=== PATIENT | male | born 1935 | race African-American/Black ===

== ENCOUNTER 2016-12-31 18:32 | Inpatient (IN) | payer OTHER ==
--- NOTE | ~2016-12-31 | IDS ---
Interim Discharge Summary [facility] [address] [place]. [address] NAME: EDDIE ZEPEDA : 37 STATUS : ADM IN PAT#: [id number] AGE: 81 ADM/REG DATE : 12/31/16 MR#: [id number] REPORT SERV DATE: 01/06/17 DICTATED BY: JOSE LOCO DATE: 01/06/17 REPORT STATUS : Draft TRANSCRIBED BY: MODL DATE: 01/06/17 ADMISSION DATE: 12/31/2016 DISCHARGE DATE: DATE OF INTERIM DISCHARGE: 01/06/2017. PROCEDURES DONE: 1. 12/31/2016, chest x-ray: Left infrahilar atelectasis. Persistent cardiomegaly with pulmonary venous congestion. 2. 12/31/2016, CTA of chest shows right lower lobe segmental size pulmonary artery embolus. This represents small pulmonary embolus burden, although represents a positive exam for acute pulmonary embolus. Fusiform aneurysmal change, ascending thoracic aorta, measuring up to 4.7 cm diameter in the mid ascending thoracic aorta. Enlarged main pulmonary artery 3.6 cm diameter consistent with evidence of pulmonary hypertension. Subsegmental atelectasis, both posterior lung bases. Small fat containing left posterior diaphragmatic hernia effect. Cardiomegaly. Dense coronary artery calcifications. Bulky right thyroid goiter displacing trachea to the left midline. 3. 01/01/2017, 2D echo: Normal off normal LV size with moderate decrease in systolic function. EF 35%. Mild global hypokinesis with inferior and inferolateral severe hypokinesis. Normal RV size and decreased systolic function. Aortic valve sclerosis without stenosis with mild regurgitation. No evidence of significant pulmonary hypertension with RVSP at 33 mmHg. CONSULT: Cardiology with Dr. Morgan. REASON FOR ADMISSION: Chest pain. HISTORY OF HOSPITAL STAY: A 81-year-old, black male, past medical history of hypertension, presenting with chest pain. The patient was initially admitted in intensive care secondary to the patient having chest pain secondary to PE. The patient was started on heparin and subsequently was moved to the floor the following day. In addition, the patient was also noted to be in hypertensive urgency, which the jig worker started blood pressure medications, which brought the patient's blood pressure to normotensive. After the transfer to the floor, the patient's blood pressure has been elevated. Attempts were made to get the blood pressure down to normotensive due to the new discovery of ascending aortic aneurysm at 4.7 cm. The patient responded well with blood pressure medications. However, the patient's clinical condition resulted in being weak and dizzy with an episode of hypotension and bradycardia. Upon further questioning, the patient has been taking his lisinopril and has not been monitoring his blood pressure at home. At this point, questionable if the patient has permissive elevated blood pressure that has been undiagnosed, which resulted in hypertensive urgency. At this time, the patient is slowly being weaned back to his elevated blood pressure range prior to admission. Questionable if the patient's blood pressure is normally around systolic blood pressure of 150. In addition, a 2D echo was done at the time of admission, which showed an EF of 35% with inferior hypokinesis. Cardiology was consulted. Cardiology felt that the acute issue at this time is the pulmonary embolus. Interim Discharge Summary [place] [id number] [facility] [place]. [address] NAME: EDDIE ZEPEDA : 37 STATUS : ADM IN [facility]#: [id number] AGE: 81 ADM/REG DATE : 12/31/16 MR#: [id number] REPORT SERV DATE: 01/06/17 DICTATED BY: JOSE LOCO DATE: 01/06/17 REPORT STATUS : Draft TRANSCRIBED BY: JENNIE DATE: 01/06/17 Although the patient will need a heart catheterization in the future, treatment of the pulmonary embolus for three to six months is warranted before a cardiac cath. In the meantime, the patient's creatinine also is being monitored. Since the patient was normotensive for one to two days, questionable if the kidney were perfuse. We will continue to monitor blood pressure and renal function at this time. DIAGNOSES ON DISCHARGE: 1. Chest pain secondary to hypertensive versus pulmonary embolism. Currently, the patient's chest pain is resolved. 2. Pulmonary embolism. Initially, patient was on heparin and subsequently been converted to Xarelto. The patient is able to afford the medication based on his insurance. There was a question about affordability. 3. Hypertensive urgency. On further questioning, the patient probably is having permissive elevated blood pressure prior to being admitted. Attempts were made to bring the patient's blood pressure in the normotensive range. However, the patient was clinically feeling weaker. Therefore, the patient's blood pressure medications have slowly been discontinued to elevate the patient's blood pressure for perfusion for his kidneys. Family is aware that the patient's lack of blood pressure control as an outpatient allow permissive hypertension to persist presents for the patient. 4. Ascending aortic aneurysm at 4.7 cm. Although blood pressure control would be required for this patient, we will slowly bring down the blood pressure over time. This will require careful monitoring as an outpatient. 5. Coronary artery disease with inferior hypokinesis. Cardiology has been consulted for further evaluation of the patient's coronary artery disease. At this time, we will wait until pulmonary embolism has resolved before heart catheterization can be done. 6. Right thyroid goiter. The patient has stated that he had opportunities to rectify his thyroid with radioactive iodine. Unfortunately, the patient refused due to fear of radiation. Family has been convincing the patient to undergo radioactive iodine ablation for his thyroid goiter. The patient states he is willing to comply once he completes the Xarelto as well as the heart catheterization. FBJ/MODL Jose Loco MD / [id number] CC: MD Eddie Renteria M.D.
--- NOTE | ~2016-12-31 | TEE ---
Transesophageal Echocardiogram [facility] [address] [place]. [address] NAME: EDDIE ZEPEDA : 37 STATUS : ADM IN PAT#: [id number] AGE: 81 ADM/REG DATE : 12/31/16 MR#: [id number] REPORT SERV DATE: 01/08/17 DICTATED BY: THEO DOWNS DATE: 01/08/17 REPORT STATUS : Draft TRANSCRIBED BY: MODL DATE: 01/08/17 FARA AND CARDIOVERSION REPORT INDICATION: This is a 81-year-old male with an atypical atrial flutter versus atrial tachycardia in the setting of acute pulmonary embolism. He is on therapeutic anticoagulation with Xarelto. He has been otherwise hemodynamically stable for several days. Informed consent was obtained, signed, and on the chart prior to proceeding. A time-out was performed. Sedation was per Anesthesia, and esophageal intubation was without difficulty. TECH: MT. The overall quality of the study was adequate. FINDINGS: CHAMBERS: 1. The left atrium appeared mildly enlarged. The left atrial appendage was examined with multiple angulation and there was no thrombus identified. Left atrial appendage color Doppler findings were normal and velocity exceeded 40 cm/second. 2. The left ventricle was grossly normal in size with a visually estimated LVEF of 40%. There was mild-moderate global hypocontractility. 3. The right atrium was moderately dilated. There was no mass thrombus seen. Superior and inferior vena cava appeared normal. 4. The right ventricle appeared moderately enlarged with moderate free wall hypocontractility. VALVES: 1. The aortic valve morphology was trileaflet with adequate mobility. The aortic root was moderately dilated, 4.5 cm. Aortic regurgitation was not assessed. 2. The mitral valve morphology was normal with fully mobile leaflets. Mitral regurgitation was not assessed. 3. The pulmonic valve was grossly normal with adequate mobility. Pulmonic regurgitation was not assessed. 4. The tricuspid valve morphology was normal with fully mobile leaflets. Tricuspid regurgitation was not assessed. OTHER: The interatrial septum was examined with multiple angulations, and there was a definite small patent foramen ovale with left-right interatrial shunt seen by color Doppler. There was no pericardial effusion. The descending thoracic aorta was poorly visualized. The aortic arch was normal in caliber with mild atherosclerotic changes. CARDIOVERSION: A single 200 joule biphasic energy shock was delivered with the pads in the anterior-posterior position with successful conversion from atrial tachycardia versus atrial flutter to sinus rhythm at 70 beats per minute. Transesophageal Echocardiogram [address] [address] NAME: EDDIE ZEPEDA : 37 STATUS : ADM IN PAT#: [id number] AGE: 81 ADM/REG DATE : 12/31/16 MR#: [id number] REPORT SERV DATE: 01/08/17 DICTATED BY: THEO DOWNS. DATE: 01/08/17 REPORT STATUS : Draft TRANSCRIBED BY: JENNIE DATE: 01/08/17 COMPLICATIONS: None apparent. CONCLUSION: 1. NO LEFT ATRIAL OR LEFT ATRIAL APPENDAGE THROMBUS. 2. SUCCESSFUL CARDIOVERSION TO SINUS RHYTHM. 3. MODERATELY DILATED RIGHT-SIDED CHAMBERS. 4. MODERATE RV HYPOCONTRACTILITY. 5. NORMAL LV SIZE WITH MILD-MODERATE SYSTOLIC DYSFUNCTION, EF OF 40%. 6. MODERATELY DILATED AORTIC ROOT. 7. SMALL PATENT FORAMEN OVALE, DESCRIBED ABOVE. AEA/JENNIE Theo Downs M.D. / [id number] CC: MD Eddie Renteria M.D.
--- NOTE | ~2016-12-31 | CN ---
Consultation Report [place] [address] [facility] [place]. [address] NAME: EDDIE ZEPEDA : 37 STATUS : ADM IN PAT#: [id number] AGE: 81 ADM/REG DATE : 12/31/16 MR#: [id number] REPORT SERV DATE: 01/05/17 DICTATED BY: EDDIE AVALOS DATE: 01/05/17 REPORT STATUS : Draft TRANSCRIBED BY: MODL DATE: 01/05/17 CARDIOVASCULAR CONSULTATION DATE OF CONSULTATION: This cardiovascular consultation requested by Dr. Jose Shine. INDICATION: New diagnosis of cardiomyopathy with coronary artery disease. HISTORY OF PRESENT ILLNESS: Mr. Zepeda is a 81-year-old man with no prior history of coronary artery disease, DE, or congestive heart failure. He is admitted with chest pain and is discovered to have an acute pulmonary embolus. He has started Xarelto anticoagulation. He had several studies, which noted significant incidental findings. His chest CT angiogram also demonstrated coronary atherosclerosis. His echocardiogram demonstrated an ejection fraction of 35% with inferior wall hypokinesis. He was also discovered to have an abdominal aortic aneurysm measuring approximately 4.7 cm. Aside from the pain associated with his pulmonary embolus, the patient has had no other cardiovascular symptoms. He did not have symptoms of chest pain or dyspnea leading up to the acute event. He is feeling better now with anticoagulation treatment for his pulmonary embolus. Troponins checked during this admission were 0.07 and 0.05. PAST MEDICAL HISTORY: 1. Hypertension. 2. Acute pulmonary embolus. 3. Hypothyroidism. 4. Recent abdominal aortic aneurysm. 5. Recent coronary artery disease. 6. Recent left ventricular systolic dysfunction. SOCIAL HISTORY: He does not smoke or drink alcohol. FAMILY HISTORY: There is no family history of early coronary artery disease. REVIEW OF SYSTEMS: A complete review of systems was obtained, which is negative in detail except as mentioned above in the HPI. ALLERGIES: INCLUDE LATEX. MEDICATIONS: Include allopurinol, eye drops, vitamin D, Prinivil 20 mg daily, fish oil, Pravachol 40 mg a day. PHYSICAL EXAMINATION: VITAL SIGNS: Blood pressure 102/66, heart rate of 82, respiratory rate of 14. GENERAL: Comfortable in no acute distress. Consultation Report [place] [address] [place]. [address] NAME: EDDIE ZEPEDA : 37 STATUS : ADM IN PAT#: [id number] AGE: 81 ADM/REG DATE : 12/31/16 MR#: [id number] REPORT SERV DATE: 01/05/17 DICTATED BY: EDDIE AVALOS DATE: 01/05/17 REPORT STATUS : Draft TRANSCRIBED BY: JENNIE DATE: 01/05/17 HEENT: Anicteric. No xanthelasma. Lips without cyanosis. NECK: No JVD. Carotids 2+ and symmetric. No carotid bruits. LUNGS: CTA bilaterally. No wheezes or rhonchi. No accessory muscle use. COR: RRR. Normally placed PMI. Normal S1 and S2. No murmurs, rubs or gallops. ABD: Soft, nontender, nondistended. Normal bowel sounds. No abdominal bruits. EXT: No clubbing, cyanosis or edema 2+ and symmetric distal pulses. SKIN: Warm. Dry. No venous stasis changes. MS: No kyphosis. NEURO/PSYCH: Oriented x3. No anxiety or depression. LABORATORY STUDIES: Potassium of 4.5, creatinine of 1.1, hematocrit of 43. Troponin 0.07, 0.05, and 0.02. I reviewed his echocardiogram report as above. EKG: A 12-lead EKG shows sinus rhythm, 85 beats per minute. Left ventricular hypertrophy with strain pattern as noted. Poor R-wave progression noted. IMPRESSION: This is a 81-year-old man, admitted with symptoms consistent with acute pulmonary embolus. He has incidentally discovered to have both coronary atherosclerosis, moderate left ventricular systolic dysfunction, and inferior wall hypokinesis most consistent with prior inferior wall myocardial infarction. He is also discovered to have an abdominal aortic aneurysm measuring 4.7 cm. I think the acute and most important issue is treatment of his pulmonary embolus. I think he will eventually need a cardiac catheterization, but it is probably best to treat his pulmonary embolus with anticoagulants for three to six months first. He will need ultrasound followup of his abdominal aneurysm. I have recommended changing his Pravachol to Lipitor 80 and considering Coreg and lisinopril as primary treatment strategies for his hypertension. NARINDER/JENNIE Eddie Avalos M.D. / [id number] CC: MD Eddie Renteria M.D.
--- NOTE | ~2016-12-31 | DS ---
Discharge Summary [facility] [address] [facility] [place]. [address] NAME: EDDIE ZEPEDA : 37 STATUS : DIS IN PAT#: [id number] AGE: 81 ADM/REG DATE : 12/31/16 MR#: [id number] REPORT SERV DATE: 01/10/17 DICTATED BY: DOUG GARCIA DATE: 01/09/17 REPORT STATUS : Draft TRANSCRIBED BY: MODL DATE: 01/09/17 ADMISSION DATE: 12/31/2016 DISCHARGE DATE: 01/09/2017 DISCHARGE DIAGNOSES: 1. Acute pulmonary embolism on the right upper lobe. Hypertensive urgency, currently resolved. 2. Abdominal aortic aneurysm, measuring about 4.7 cm, unclear whether it is chronic or not, outpatient followup recommended. 3. Coronary artery disease. 4. Atrial fibrillation, status post DC cardioversion, currently in sinus rhythm. 5. Coronary artery disease by CT scan. 6. Right thyroid goiter. 7. Debility. 8. Systolic congestive heart failure with an ejection fraction of 35%, currently compensated. 9. Hypothyroidism. CONSULTANTS DURING THIS HOSPITALIZATION: Eddie Morgan M.D. of Cardiology; Calixto Galeana M.D. of Electrophysiology; and Theo Downs M.D. of Cardiology as well. BRIEF HISTORY OF PRESENT ILLNESS: The patient is a 81-year-old male who presented with chest pain, shortness of breath, and found to have pulmonary embolism, so he was admitted. For a detailed history and physical exam, please see H and P dictated by Dr. Verna Silva on 12/31/2016. HOSPITAL COURSE: After being admitted to the hospital, this patient was monitored in the intensive care unit initially and then transitioned to the floor on 01/02/2017. This patient was followed by Dr. Key Shine. Please refer to interim summary dictated by Dr. Shine on 01/06/2017. I took over this patient's care on 01/08/2017. This patient had already underwent FARA and DC cardioversion. He had remained in sinus rhythm. He did do well. His hemoglobin and hematocrit have been stable. Xarelto has been initiated. These have been approved through his insurance company as well and he ambulated with physical therapy using a rolling walker, this will be needed as home equipment which will be ordered through Case Management. He is doing well enough that he could be discharged in the home setting, all other parameters remained stable. We have written all prescriptions and he feels that he can go home. DISCHARGE DISPOSITION: Home. DISCHARGE ACTIVITY: As tolerated. DISCHARGE DIET: Low-sodium diet. DISCHARGE MEDICATIONS: Allopurinol 100 mg once daily, pravastatin 40 mg once at bedtime, Alphagan eye drops, vitamin D3 1000 units twice daily, Cosopt eye drops, Coreg 6.25 mg twice Discharge Summary [address] [address] NAME: EDDIE ZEPEDA : 37 STATUS : DIS IN PAT#: [id number] AGE: 81 ADM/REG DATE : 12/31/16 MR#: [id number] REPORT SERV DATE: 01/10/17 DICTATED BY: DOUG GARCIA DATE: 01/09/17 REPORT STATUS : Draft TRANSCRIBED BY: JENNIE DATE: 01/09/17 daily, Xalatan eye drops, [place]-3 fish oil, Xarelto 15 mg twice daily to finish a 21-day loading dose and then 20 mg once daily, and lisinopril 5 mg once daily. DISCHARGE FOLLOWUP: With Dr. Eddie Henry in one to two weeks. With Cardiology as scheduled by Cardiology. More than 30 minutes spent planning this patient's discharge, reconciling medications, writing prescriptions, discussing hospital care, followup with the patient and the family at the bedside as well as family over the phone and documenting this discharge. NAILA/JENNIE Doug Garcia M.D. / [id number] CC: Lakesha Callahan M.D. Froilan B. Joves, MD
--- NOTE | ~2016-12-31 | HP ---
History And Physical [place] [address] [place]. [address] NAME: EDDIE ZEPEDA : 37 STATUS : ADM IN [facility]#: [id number] AGE: 81 ADM/REG DATE : 12/31/16 MR#: [id number] REPORT SERV DATE: 01/01/17 DICTATED BY: VERNA SILVA DATE: 01/01/17 REPORT STATUS : Draft TRANSCRIBED BY: MODL DATE: 01/01/17 DATE OF ADMISSION: 12/31/2016 REASON FOR ADMISSION: Pulmonary embolism and hypertension. CHIEF COMPLAINT: Chest pain. HISTORY OF PRESENT ILLNESS: Mr. Zepeda is a 81-year-old gentleman with a past medical history noted below who stated that he went to his primary care physician today for underlying chest pain. He was told to come to the emergency room for his chest pain. The patient states that he has had chest pain for quite some time on and off, however, this one felt a little bit different, this was more of a sharp pain where as his other pains are more of an aching pain. In the emergency room, he was for the most part stable, but then became quite unstable according to the ER staff and was found to be very hypertensive, chest pains became worse, the patient developed diaphoresis, and a CT scan with a PE protocol was conducted in which the patient has a right upper lobe acute pulmonary embolus. He was also very hypertensive, blood pressure has now improved and has had been started on a heparin drip. PAST MEDICAL HISTORY: The patient at this moment in time cannot remember his past medical history or his home medications. The patient states he has a list of home medications. MEDICATIONS: As noted above. ALLERGIES: NO KNOWN DRUG ALLERGIES. FAMILY HISTORY: Mother had lung cancer. Father had coronary artery disease and at the age of 74. SOCIAL HISTORY: The patient is currently . He has a history of smoking and a history of drinking. REVIEW OF SYSTEMS: Other than what was discussed above, no other pertinent review of systems. PHYSICAL EXAMINATION: VITAL SIGNS: The patient is currently afebrile, heart rate around 116, oxygen saturation 96% on 3 liters nasal cannula, respiratory rate 16, and blood pressure currently 137/81. GENERAL: The patient is currently alert and oriented x3, no acute distress, currently in the intensive care unit. HEENT: No JVD. Neck is supple. CARDIAC: Tachycardia noted, slight systolic ejection murmur noted. PULMONARY: Lungs are clear to auscultation bilaterally. No wheezing. ABDOMEN: Soft, nontender, and nondistended. EXTREMITIES: No cyanosis. Pulses noted bilaterally. No lower extremity edema. NEUROLOGIC: No focal neurological deficits. History And Physical [address] [place]. [address] NAME: EDDIE ZEPEDA : 37 STATUS : ADM IN [facility]#: [id number] AGE: 81 ADM/REG DATE : 12/31/16 MR#: [id number] REPORT SERV DATE: 01/01/17 DICTATED BY: VERNA SILVA DATE: 01/01/17 REPORT STATUS : Draft TRANSCRIBED BY: JENNIE DATE: 01/01/17 LABORATORY EXAMINATION: Normal CBC. INR 1.4. Normal kidney function. BNP [address] pulmonary angiogram shows an acute PE on the right upper lobe, goiter, AAA, and coronary artery disease noted. ASSESSMENT AND PLAN: Mr. Zepeda is a 81-year-old gentleman with a past medical history noted above who presents to the intensive care unit with hypertensive urgency, acute pulmonary embolism. 1. Hypertensive urgency: This patient was quite hypertensive and diaphoretic, necessitated the start of nicardipine; however, currently, he is off nicardipine and blood pressure is stable in the 130s. We will continue to follow and hopefully get his home medication list to probably start his home antihypertensive medications. 2. Acute pulmonary embolism: As noted above, this seemed to be unprovoked. The patient has been started on a heparin drip. 3. Abdominal aortic aneurysm at 4.7, unclear whether this is chronic. At this moment in time, this needs an outpatient followup. 4. Coronary artery disease by CT scan criteria, again unclear if this is chronic, we will await home medication list. 5. Right thyroid goiter: The patient shall have this followed up in the outpatient setting as this is quite large and currently moving the trachea to the left. 6. Diet: Advance diet as tolerated. 7. Prophylaxis: The patient is on a heparin drip. 8. Code status: The patient is currently full code. HFQ/MODL Verna Silva MD / [id number] CC: MD Eddie Renteria M.D.
--- NOTE | ~2016-12-31 | CN ---
Consultation Report [facility] [address] [place]. [address] NAME: EDDIE ZEPEDA : 39 STATUS : ADM IN [facility]#: [id number] AGE: 81 ADM/REG DATE : 12/31/16 MR#: [id number] REPORT SERV DATE: 01/08/17 DICTATED BY: SALAZAR POSADA DATE: 01/07/17 REPORT STATUS : Draft TRANSCRIBED BY: MODL DATE: 01/07/17 ELECTROPHYSIOLOGY CONSULTATION DATE OF CONSULTATION: 01/07/2017 REASON FOR CONSULTATION: Atrial flutter and bradycardia. HISTORY OF PRESENT ILLNESS: Mr. Zepeda is a pleasant 81-year-old gentleman, who was admitted with chest discomfort, found to have evidence for an acute pulmonary embolus. He was started on Xarelto. As part of his cardiac workup, he underwent an echocardiogram demonstrating an ejection fraction of 35%. An EKG has demonstrated an atypical atrial flutter with some small upright atrial flutter waves in lead 3, more isoelectric in leads 2 and aVF. Attempts at rate control have resulted in having high-grade AV block and episodes of bradycardia. He denies any symptoms related to either his atrial flutter or any problems with bradycardia. Denying any presyncope, syncope, or profound fatigue. PAST MEDICAL HISTORY: Notable for: 1. Hypertension. 2. Diagnosis of an acute pulmonary embolus on this admission. 3. Cardiomyopathy of uncertain etiology. 4. Hypothyroidism. 5. Abdominal aortic aneurysm. 6. Atypical atrial flutter. 7. Bradycardia as noted above. CURRENT MEDICATIONS: Include Xarelto 15 mg p.o. b.i.d., which he is receiving for his pulmonary embolus. Use of Coreg and Prinivil for his congestive heart failure as well as rate control with his atypical atrial flutter. FAMILY HISTORY: Noncontributory. Negative for premature coronary artery disease. SOCIAL HISTORY: Negative for tobacco or alcohol. REVIEW OF SYSTEMS: As noted above. All other systems reviewed and negative. PHYSICAL EXAMINATION: VITAL SIGNS: O2 saturation 95%, blood pressure 120/70, afebrile, pulse 110, and respirations 20. GENERAL: Well developed, well nourished. HEENT: No icterus. Good dentition. NECK: Supple. No masses or thyromegaly LUNGS: Breathing comfortably. No rales or wheezes. COR: Normal S1, S2. No S3 or S4. No murmurs, clicks, rubs. No JVD ABD: Soft, nondistended, nontender, no hepatosplenomegaly. Consultation Report [place] [id number] [facility] [id number] NAME: EDDIE ZEPEDA : 39 STATUS : ADM IN PAT#: [id number] AGE: 81 ADM/REG DATE : 12/31/16 MR#: [id number] REPORT SERV DATE: 01/08/17 DICTATED BY: SALAZAR POSADA DATE: 01/07/17 REPORT STATUS : Draft TRANSCRIBED BY: JENNIE DATE: 01/07/17 EXT: No clubbing, cyanosis or edema. Peripheral pulses 2+/= bilaterally. SKIN: Warm and dry. No visible lesions. MS: Chest wall without deformity, no obvious clavicular fractures. NEURO/PSYCH: Oriented X3. No anxiety or depression. IMAGING: EKG shows evidence for an atypical atrial flutter, upright in lead 3, isoelectric in leads 2 and aVF. Heart rate 110 beats per minute. QRS and QT intervals within normal limits. No evidence for ischemia or infarction. LABORATORY VALUES: Potassium 5.6, sodium 136, creatinine 1.3. Troponin of 0.2. CBC: WBC of 8.6, hematocrit of 43, and platelet count 366. IMPRESSION: Pleasant gentleman, admitted with chest discomfort thought to be secondary to pulmonary embolus. He has been found to have a decreased LV systolic function, ejection fraction of 35%. He is being treated with carvedilol and an DAMARIS inhibitor. He was discovered to have what appears to be an atypical atrial flutter. I cannot exclude that this could be a clockwise tricuspid valve inferior vena caval isthmus atrial flutter, but certainly has a possibility of being a left-sided atrial flutter. He is modestly tachycardic, but has also demonstrated some high-grade AV block and bradycardia in his atrial flutter making it difficult to control his rate with high dose AV vinita blockade. I would recommend that he undergo cardioversion. At this point, I would do this without an antiarrhythmic agent. If he has recurrence at some point, when he can discontinue anticoagulation that is to say when he has been appropriately treated for his pulmonary embolus, we could consider potential EP study and radiofrequency ablation if felt to be necessary. Again, at this point, I would just recommend a transesophageal echocardiogram and a cardioversion. ELKE/MODL Salazar Posada M.D. / [id number] CC: MD Eddie Renteria M.D.
[~2016-12-31 18:32] MED LIST: COMBIGAN0.2 MG/0.5 OP; COSOPT OPH; FISH OIL1200 MG PO; HYDROCHLOROT25 MG PO; NORV5 PO; PRAVACHOL40 MG PO; XALAT OPH; ZESTRIL10 MG PO; ZOCOR20 PO
[2016-12-31 18:53] LABS: INTERNATIONAL NORMAL RATI 1.4 UNITS (-); PARTIAL THROMBO TIME 43.9 SEC (22.5-37.2); PROTIME (NOT ORD) 17.3 SEC (12.0-14.5)
[2016-12-31 18:58] LABS: BASOPHILS 0.4 %; BASOPHILS ABSOLUTE 0.04 10/3/uL (0.0-0.16); EOSINOPHILS 2.1 %; EOSINOPHILS ABSOLUTE 0.21 10/3/uL (0.0-0.53); ER CBC TAT 0 Hrs 19 Mins; HEMATOCRIT 49.4 % (40.0-51.0); HEMOGLOBIN 15.2 g/dL (13.6-17.8); IMMATURE GRANULOCYTES 0.4 %; IMMATURE GRANULOCYTES ABSOLUTE 0.04 10/3/uL (0.0-0.11); LYMPHOCYTES 11.9 %; LYMPHOCYTES ABSOLUTE 1.21 10/3/uL (0.67-4.30); MEAN CORPUS HGB CONC 30.8 g/dL (32.0-36.0); MEAN CORPUSCULAR HEMOGLOB 22.6 pg (26.0-34.0); MEAN CORPUSCULAR VOLUME 73.5 fL (80-100); MONOCYTES 6.5 %; MONOCYTES ABSOLUTE 0.66 10/3/uL (0.21-1.20); NEUTROPHILS 78.7 %; NEUTROPHILS ABSOLUTE 7.98 10/3/uL (2.02-8.40); NUCLEATED RED BLOOD CELLS 0.5 /100WBC (0-0); PLATELET COUNT 444 10/3/uL (150-400); WHITE BLOOD CELLS 10.1 10/3/uL (4.5-10.5)
[2016-12-31 18:59] LABS: MANUAL DIFF NO %; RED CELL COUNT 6.72 10/6/uL (4.7-6.1)
[2016-12-31 19:05] LABS: BUN (BLOOD UREA NITROGEN) 13 MG/DL (6-23); CALCIUM, SERUM 8.9 MG/DL (8.5-10.4); CHLORIDE, SERUM 105 MMOL/L (96-112); CO2 (CARBON DIOXIDE) 25 MMOL/L (24-34); CREATININE 0.98 MG/DL (0.70-1.30); GFR AFRICAN AMERICAN 85 ML/MIN (>=60); GFR NON AFRICAN AMERICAN 73 ML/MIN (>=60); POTASSIUM, SERUM 4.2 MMOL/L (3.5-5.3); SODIUM, SERUM 140 MMOL/L (135-148)
[2016-12-31 19:08] LABS: GLUCOSE, SERUM 89 MG/DL (60-99)
[2016-12-31 19:09] LABS: CHEST PAIN PROFILE TAT 0 Hrs 30 Mins; TROPONIN I 0.07 NG/ML (<0.05)
[2016-12-31 19:26] LABS: ANISOCYTOSIS 1+ (5-10/OIF) (0-5/OIF)
[2016-12-31 19:28] LABS: GIANT PLATELET FEW
[2016-12-31] MEDS ORDERED: VITAMIN D31000 UNIT PO (21:27)
[2016-12-31] MEDS ORDERED: FISH-EPA1000 MG PO (21:27)
[2016-12-31] MEDS ORDERED: COSOPT OPH (21:28)
[2016-12-31] MEDS ORDERED: PRAVACHOL40 MG PO (21:28)
[2016-12-31] MEDS ORDERED: PRIN5 PO (21:28)
[2016-12-31] MEDS ORDERED: Z100 PO (21:28)
[2016-12-31] MEDS ORDERED: XALAT OPH (21:29)
[2016-12-31] MEDS ORDERED: ALPHAGAN P0.1 % OPH (21:29)
[2016-12-31 22:46] LABS: BE (BASE EXCESS) -2.5 MEQ/L (0 +/- 2.5); CARBOXYHEMOGLOBIN 1.5 % (0-3); DEVICE NC; HCO3 (ACTUAL BICARBONATE) 23.9 MEQ/L (23-27); HEMOBLOGIN CONTENT 17.8 G/DL (14-18); INSTRUMENT SERIAL # 8087; METHEMOGLOBIN 0.6 % (0-3); PCO2 (CO2 TENSION) 47 MMHG (35-45); PO2 (O2 TENSION) 46 MMHG (79-93); SAMPLE Arterial; pH 7.32 (7.37-7.43)
[2017-01-01 04:11] LABS: BASOPHILS 0.2 %; BASOPHILS ABSOLUTE 0.03 10/3/uL (0.0-0.16); EOSINOPHILS 1.1 %; EOSINOPHILS ABSOLUTE 0.13 10/3/uL (0.0-0.53); HEMATOCRIT 48.3 % (40.0-51.0); HEMOGLOBIN 15.4 g/dL (13.6-17.8); IMMATURE GRANULOCYTES 0.7 %; IMMATURE GRANULOCYTES ABSOLUTE 0.08 10/3/uL (0.0-0.11); LYMPHOCYTES 8.5 %; LYMPHOCYTES ABSOLUTE 1.04 10/3/uL (0.67-4.30); MANUAL DIFF NO %; MEAN CORPUS HGB CONC 31.9 g/dL (32.0-36.0); MEAN CORPUSCULAR HEMOGLOB 23.1 pg (26.0-34.0); MEAN CORPUSCULAR VOLUME 72.5 fL (80-100); MONOCYTES 4.4 %; MONOCYTES ABSOLUTE 0.53 10/3/uL (0.21-1.20); NEUTROPHILS 85.1 %; NEUTROPHILS ABSOLUTE 10.36 10/3/uL (2.02-8.40); PLATELET COUNT 385 10/3/uL (150-400); RBC DISTRIBUTION WIDTH 18.7 % (12.0-16.0); RED CELL COUNT 6.66 10/6/uL (4.7-6.1); WHITE BLOOD CELLS 12.2 10/3/uL (4.5-10.5)
[2017-01-01 04:13] LABS: PARTIAL THROMBO TIME 109.3 SEC (22.5-37.2)
[2017-01-01 04:17] LABS: BUN (BLOOD UREA NITROGEN) 14 MG/DL (6-23); CALCIUM, SERUM 9.1 MG/DL (8.5-10.4); CHLORIDE, SERUM 105 MMOL/L (96-112); CO2 (CARBON DIOXIDE) 23 MMOL/L (24-34); CREATININE 0.81 MG/DL (0.70-1.30); GFR AFRICAN AMERICAN 98 ML/MIN (>=60); GFR NON AFRICAN AMERICAN 85 ML/MIN (>=60); POTASSIUM, SERUM 4.1 MMOL/L (3.5-5.3); SODIUM, SERUM 139 MMOL/L (135-148)
[2017-01-01 04:19] LABS: GLUCOSE, SERUM 123 MG/DL (60-99)
[2017-01-01 04:31] LABS: ANISOCYTOSIS 1+ (5-10/OIF) (0-5/OIF); HYPOCHROMIA 1+ (3-10/OIF) (0-2/OIF); PLATELET ESTIMATE ADQ (ADEQUATE)
[2017-01-02 04:23] LABS: BASOPHILS 0.3 %; BASOPHILS ABSOLUTE 0.03 10/3/uL (0.0-0.16); EOSINOPHILS 2.1 %; EOSINOPHILS ABSOLUTE 0.23 10/3/uL (0.0-0.53); HEMATOCRIT 47.9 % (40.0-51.0); HEMOGLOBIN 15.2 g/dL (13.6-17.8); IMMATURE GRANULOCYTES 0.4 %; IMMATURE GRANULOCYTES ABSOLUTE 0.04 10/3/uL (0.0-0.11); LYMPHOCYTES 14.3 %; LYMPHOCYTES ABSOLUTE 1.54 10/3/uL (0.67-4.30); MEAN CORPUS HGB CONC 31.7 g/dL (32.0-36.0); MEAN CORPUSCULAR HEMOGLOB 23.1 pg (26.0-34.0); MEAN CORPUSCULAR VOLUME 72.9 fL (80-100); MONOCYTES 6.2 %; MONOCYTES ABSOLUTE 0.67 10/3/uL (0.21-1.20); NEUTROPHILS 76.7 %; NEUTROPHILS ABSOLUTE 8.24 10/3/uL (2.02-8.40); PLATELET COUNT 354 10/3/uL (150-400); RBC DISTRIBUTION WIDTH 18.9 % (12.0-16.0); RED CELL COUNT 6.57 10/6/uL (4.7-6.1); WHITE BLOOD CELLS 10.8 10/3/uL (4.5-10.5)
[2017-01-02 04:24] LABS: MANUAL DIFF NO %
[2017-01-02 04:25] LABS: PARTIAL THROMBO TIME 131.2 SEC (22.5-37.2)
[2017-01-02 04:31] LABS: BUN (BLOOD UREA NITROGEN) 16 MG/DL (6-23); CALCIUM, SERUM 8.9 MG/DL (8.5-10.4); CHLORIDE, SERUM 102 MMOL/L (96-112); CO2 (CARBON DIOXIDE) 25 MMOL/L (24-34); CREATININE 0.79 MG/DL (0.70-1.30); GFR AFRICAN AMERICAN 99 ML/MIN (>=60); GFR NON AFRICAN AMERICAN 85 ML/MIN (>=60); PHOSPHORUS, SERUM 3.4 MG/DL (2.5-4.5); POTASSIUM, SERUM 3.9 MMOL/L (3.5-5.3); SODIUM, SERUM 138 MMOL/L (135-148)
[2017-01-02 04:33] LABS: ANISOCYTOSIS 1+ (5-10/OIF) (0-5/OIF); PLATELET ESTIMATE ADQ (ADEQUATE)
[2017-01-02 04:34] LABS: ELLIPTOCYTES 1+ (3-10/OIF) (0-2/OIF); HYPOCHROMIA 1+ (3-10/OIF) (0-2/OIF); MICROCYTES 1+ (5-10/OIF) (0-5/OIF)
[2017-01-02 04:35] LABS: EOSINOPHILS 4 %; EOSINOPHILS ABSOLUTE (CALC) 0.43 10/3/uL (0.0-0.53); LYMPHOCYTES 52 %; LYMPHOCYTES ABSOLUTE (CALC) 5.62 10/3/uL (0.67-4.30); MONOCYTES 7 %; MONOCYTES ABSOLUTE (CALC) 0.76 10/3/uL (0.21-1.20); SEGMENTED NEUTROPHIL (0) 37 %; TOTAL NUCLEATED CELLS 100
[2017-01-02 04:36] LABS: GLUCOSE, SERUM 98 MG/DL (60-99)
[2017-01-02 08:16] LABS: BASOPHILS 0.3 %; BASOPHILS ABSOLUTE 0.03 10/3/uL (0.0-0.16); EOSINOPHILS 1.8 %; EOSINOPHILS ABSOLUTE 0.19 10/3/uL (0.0-0.53); HEMATOCRIT 48.9 % (40.0-51.0); HEMOGLOBIN 15.2 g/dL (13.6-17.8); IMMATURE GRANULOCYTES 0.4 %; IMMATURE GRANULOCYTES ABSOLUTE 0.04 10/3/uL (0.0-0.11); LYMPHOCYTES 10.7 %; LYMPHOCYTES ABSOLUTE 1.13 10/3/uL (0.67-4.30); MANUAL DIFF NO %; MEAN CORPUS HGB CONC 31.1 g/dL (32.0-36.0); MEAN CORPUSCULAR HEMOGLOB 22.4 pg (26.0-34.0); MEAN CORPUSCULAR VOLUME 71.9 fL (80-100); MONOCYTES ABSOLUTE 0.63 10/3/uL (0.21-1.20); NEUTROPHILS 80.8 %; NEUTROPHILS ABSOLUTE 8.56 10/3/uL (2.02-8.40); PLATELET COUNT 442 10/3/uL (150-400); RBC DISTRIBUTION WIDTH 18.7 % (12.0-16.0); WHITE BLOOD CELLS 10.6 10/3/uL (4.5-10.5)
[2017-01-02 08:24] LABS: ANISOCYTOSIS 1+ (5-10/OIF) (0-5/OIF); BUN (BLOOD UREA NITROGEN) 15 MG/DL (6-23); CALCIUM, SERUM 8.8 MG/DL (8.5-10.4); CHLORIDE, SERUM 101 MMOL/L (96-112); CO2 (CARBON DIOXIDE) 27 MMOL/L (24-34); CREATININE 0.84 MG/DL (0.70-1.30); GFR AFRICAN AMERICAN 97 ML/MIN (>=60); GFR NON AFRICAN AMERICAN 83 ML/MIN (>=60); GLUCOSE, SERUM 108 MG/DL (60-99); HYPOCHROMIA 1+ (3-10/OIF) (0-2/OIF); PLATELET ESTIMATE SLT INC (ADEQUATE); POTASSIUM, SERUM 3.9 MMOL/L (3.5-5.3); SODIUM, SERUM 138 MMOL/L (135-148)
[2017-01-02 08:26] LABS: OVALOCYTES 1+ (3-10/OIF) (0-2/OIF); TROPONIN I 0.05 NG/ML (<0.05)
[2017-01-02 08:27] LABS: GIANT PLATELET RARE; POLYCHROMASIA 1+ (2-5/OIF) (0-1/OIF)
[2017-01-03 07:17] LABS: A/G RATIO 0.7 (0.7-1.9); ALBUMIN 2.7 G/DL (3.5-5.0); BUN (BLOOD UREA NITROGEN) 14 MG/DL (6-23); CHLORIDE, SERUM 100 MMOL/L (96-112); CO2 (CARBON DIOXIDE) 29 MMOL/L (24-34); CREATININE 0.83 MG/DL (0.70-1.30); GFR AFRICAN AMERICAN 97 ML/MIN (>=60); GFR NON AFRICAN AMERICAN 84 ML/MIN (>=60); GLOBULIN 3.8 G/DL (2.5-4.1); GLUCOSE, SERUM 94 MG/DL (60-99); PHOSPHORUS, SERUM 3.6 MG/DL (2.5-4.5); POTASSIUM, SERUM 3.9 MMOL/L (3.5-5.3); SGOT(AST) 16 U/L (5-40); SGPT(ALT) 23 U/L (5-65); SODIUM, SERUM 139 MMOL/L (135-148); TOTAL PROTEIN 6.5 G/DL (6.0-8.5)
[2017-01-03 07:18] LABS: ALKALINE PHOSPHATASE 91 U/L (45-117)
[2017-01-03 08:07] LABS: BASOPHILS 0.4 %; BASOPHILS ABSOLUTE 0.04 10/3/uL (0.0-0.16); EOSINOPHILS 2.3 %; EOSINOPHILS ABSOLUTE 0.23 10/3/uL (0.0-0.53); HEMATOCRIT 47.4 % (40.0-51.0); HEMOGLOBIN 14.5 g/dL (13.6-17.8); IMMATURE GRANULOCYTES 0.4 %; IMMATURE GRANULOCYTES ABSOLUTE 0.04 10/3/uL (0.0-0.11); LYMPHOCYTES 10.9 %; LYMPHOCYTES ABSOLUTE 1.07 10/3/uL (0.67-4.30); MEAN CORPUS HGB CONC 30.6 g/dL (32.0-36.0); MEAN CORPUSCULAR HEMOGLOB 22.3 pg (26.0-34.0); MEAN CORPUSCULAR VOLUME 72.9 fL (80-100); MONOCYTES 8.5 %; MONOCYTES ABSOLUTE 0.83 10/3/uL (0.21-1.20); NEUTROPHILS 77.5 %; NEUTROPHILS ABSOLUTE 7.58 10/3/uL (2.02-8.40); PLATELET COUNT 415 10/3/uL (150-400); RBC DISTRIBUTION WIDTH 19.4 % (12.0-16.0); WHITE BLOOD CELLS 9.8 10/3/uL (4.5-10.5)
[2017-01-03 08:08] LABS: MANUAL DIFF NO %
[2017-01-03 08:34] LABS: ANISOCYTOSIS 1+ (5-10/OIF) (0-5/OIF); PLATELET ESTIMATE SLT INC (ADEQUATE)
[2017-01-03 08:35] LABS: RBC MORPHOLOGY ABN (NORMAL)
[2017-01-04 06:47] LABS: ALBUMIN 2.6 G/DL (3.5-5.0); BUN (BLOOD UREA NITROGEN) 14 MG/DL (6-23); CALCIUM, SERUM 9.1 MG/DL (8.5-10.4); CHLORIDE, SERUM 103 MMOL/L (96-112); CO2 (CARBON DIOXIDE) 26 MMOL/L (24-34); CREATININE 0.78 MG/DL (0.70-1.30); GFR AFRICAN AMERICAN 100 ML/MIN (>=60); GFR NON AFRICAN AMERICAN 86 ML/MIN (>=60); GLUCOSE, SERUM 101 MG/DL (60-99); PHOSPHORUS, SERUM 3.2 MG/DL (2.5-4.5); POTASSIUM, SERUM 4.5 MMOL/L (3.5-5.3); SODIUM, SERUM 138 MMOL/L (135-148)
[2017-01-04 06:51] LABS: BASOPHILS 0.4 %; BASOPHILS ABSOLUTE 0.04 10/3/uL (0.0-0.16); HEMATOCRIT 47.3 % (40.0-51.0); HEMOGLOBIN 14.8 g/dL (13.6-17.8); IMMATURE GRANULOCYTES 0.4 %; IMMATURE GRANULOCYTES ABSOLUTE 0.04 10/3/uL (0.0-0.11); LYMPHOCYTES 14.6 %; LYMPHOCYTES ABSOLUTE 1.43 10/3/uL (0.67-4.30); MANUAL DIFF NO %; MEAN CORPUS HGB CONC 31.3 g/dL (32.0-36.0); MEAN CORPUSCULAR HEMOGLOB 22.9 pg (26.0-34.0); MEAN CORPUSCULAR VOLUME 73.2 fL (80-100); MONOCYTES 6.9 %; MONOCYTES ABSOLUTE 0.68 10/3/uL (0.21-1.20); NEUTROPHILS 75.7 %; NEUTROPHILS ABSOLUTE 7.41 10/3/uL (2.02-8.40); PLATELET COUNT 378 10/3/uL (150-400); RBC DISTRIBUTION WIDTH 18.8 % (12.0-16.0); RED CELL COUNT 6.46 10/6/uL (4.7-6.1); WHITE BLOOD CELLS 9.8 10/3/uL (4.5-10.5)
[2017-01-04 07:32] LABS: ANISOCYTOSIS 1+ (5-10/OIF) (0-5/OIF); BAND NEUTROPHILS 4 %; BASOPHILS 2 %; EOSINOPHILS 3 %; EOSINOPHILS ABSOLUTE (CALC) 0.29 10/3/uL (0.0-0.53); GIANT PLATELET FEW; LYMPHOCYTES 24 %; LYMPHOCYTES ABSOLUTE (CALC) 2.35 10/3/uL (0.67-4.30); MONOCYTES 3 %; MONOCYTES ABSOLUTE (CALC) 0.29 10/3/uL (0.21-1.20); NEUTROPHILS ABSOLUTE (CALC) 6.66 10/3/uL (2.02-8.40); PLATELET ESTIMATE ADQ (ADEQUATE); SEGMENTED NEUTROPHIL (0) 64 %; TOTAL NUCLEATED CELLS 100; TOXIC GRANULATION SLT
[2017-01-05 03:51] LABS: BASOPHILS 0.2 %; BASOPHILS ABSOLUTE 0.02 10/3/uL (0.0-0.16); EOSINOPHILS 1.7 %; EOSINOPHILS ABSOLUTE 0.15 10/3/uL (0.0-0.53); HEMATOCRIT 43.2 % (40.0-51.0); HEMOGLOBIN 13.8 g/dL (13.6-17.8); IMMATURE GRANULOCYTES 0.6 %; IMMATURE GRANULOCYTES ABSOLUTE 0.05 10/3/uL (0.0-0.11); LYMPHOCYTES 14.1 %; LYMPHOCYTES ABSOLUTE 1.24 10/3/uL (0.67-4.30); MEAN CORPUS HGB CONC 31.9 g/dL (32.0-36.0); MEAN CORPUSCULAR HEMOGLOB 22.7 pg (26.0-34.0); MEAN CORPUSCULAR VOLUME 71.2 fL (80-100); NEUTROPHILS 75.4 %; NEUTROPHILS ABSOLUTE 6.64 10/3/uL (2.02-8.40); PLATELET COUNT 366 10/3/uL (150-400); RBC DISTRIBUTION WIDTH 18.4 % (12.0-16.0); RED CELL COUNT 6.07 10/6/uL (4.7-6.1); WHITE BLOOD CELLS 8.8 10/3/uL (4.5-10.5)
[2017-01-05 03:55] LABS: MANUAL DIFF NO %
[2017-01-05 04:02] LABS: A/G RATIO 0.7 (0.7-1.9); ALBUMIN 2.6 G/DL (3.5-5.0); ALKALINE PHOSPHATASE 89 U/L (45-117); CALCIUM, SERUM 8.6 MG/DL (8.5-10.4); CHLORIDE, SERUM 99 MMOL/L (96-112); CO2 (CARBON DIOXIDE) 26 MMOL/L (24-34); CPK 23 U/L (0-200); CREATININE 1.11 MG/DL (0.70-1.30); GFR AFRICAN AMERICAN 73 ML/MIN (>=60); GFR NON AFRICAN AMERICAN 63 ML/MIN (>=60); GLOBULIN 3.8 G/DL (2.5-4.1); GLUCOSE, SERUM 99 MG/DL (60-99); POTASSIUM, SERUM 4.5 MMOL/L (3.5-5.3); SGOT(AST) 18 U/L (5-40); SGPT(ALT) 25 U/L (5-65); SODIUM, SERUM 136 MMOL/L (135-148); TOTAL BILIRUBIN 0.9 MG/DL (0-1.2); TOTAL PROTEIN 6.4 G/DL (6.0-8.5); TROPONIN I 0.02 NG/ML (<0.05)
[2017-01-05 04:05] LABS: BUN (BLOOD UREA NITROGEN) 22 MG/DL (6-23); CK-MB 0.7 NG/ML
[2017-01-05 06:37] LABS: ANISOCYTOSIS 1+ (5-10/OIF) (0-5/OIF)
[2017-01-05 06:38] LABS: GIANT PLATELET OCC; PLATELET ESTIMATE ADQ (ADEQUATE); POLYCHROMASIA 1+ (2-5/OIF) (0-1/OIF); TEARDROP SHAPED RBCS OCC (0-2/OIF)
[2017-01-06 06:27] LABS: BASOPHILS 0.4 %; BASOPHILS ABSOLUTE 0.03 10/3/uL (0.0-0.16); EOSINOPHILS 2.3 %; HEMOGLOBIN 13.6 g/dL (13.6-17.8); IMMATURE GRANULOCYTES 0.7 %; IMMATURE GRANULOCYTES ABSOLUTE 0.06 10/3/uL (0.0-0.11); MEAN CORPUS HGB CONC 31.6 g/dL (32.0-36.0); MEAN CORPUSCULAR HEMOGLOB 22.7 pg (26.0-34.0); MEAN CORPUSCULAR VOLUME 71.9 fL (80-100); MONOCYTES ABSOLUTE 0.68 10/3/uL (0.21-1.20); NEUTROPHILS 74.6 %; NEUTROPHILS ABSOLUTE 6.38 10/3/uL (2.02-8.40); PLATELET COUNT 366 10/3/uL (150-400); RBC DISTRIBUTION WIDTH 18.5 % (12.0-16.0); RED CELL COUNT 5.98 10/6/uL (4.7-6.1); WHITE BLOOD CELLS 8.6 10/3/uL (4.5-10.5)
[2017-01-06 06:37] LABS: A/G RATIO 0.8 (0.7-1.9); ALBUMIN 2.7 G/DL (3.5-5.0); ALKALINE PHOSPHATASE 88 U/L (45-117); CALCIUM, SERUM 8.7 MG/DL (8.5-10.4); CHLORIDE, SERUM 94 MMOL/L (96-112); CO2 (CARBON DIOXIDE) 24 MMOL/L (24-34); CREATININE 1.44 MG/DL (0.70-1.30); GFR AFRICAN AMERICAN 53 ML/MIN (>=60); GFR NON AFRICAN AMERICAN 46 ML/MIN (>=60); GLOBULIN 3.6 G/DL (2.5-4.1); GLUCOSE, SERUM 99 MG/DL (60-99); PHOSPHORUS, SERUM 4.9 MG/DL (2.5-4.5); SGOT(AST) 22 U/L (5-40); SGPT(ALT) 28 U/L (5-65); SODIUM, SERUM 131 MMOL/L (135-148); TOTAL BILIRUBIN 0.7 MG/DL (0-1.2); TOTAL PROTEIN 6.3 G/DL (6.0-8.5)
[2017-01-06 06:39] LABS: BUN (BLOOD UREA NITROGEN) 30 MG/DL (6-23)
[2017-01-06 06:40] LABS: MANUAL DIFF NO %
[2017-01-06 07:06] LABS: ANISOCYTOSIS 1+ (5-10/OIF) (0-5/OIF); PLATELET ESTIMATE ADQ (ADEQUATE)
[2017-01-06 07:07] LABS: GIANT PLATELET FEW
[2017-01-07 07:50] LABS: CALCIUM, SERUM 8.9 MG/DL (8.5-10.4); CHLORIDE, SERUM 103 MMOL/L (96-112); CO2 (CARBON DIOXIDE) 20 MMOL/L (24-34); CREATININE 1.31 MG/DL (0.70-1.30); GFR AFRICAN AMERICAN 60 ML/MIN (>=60); GFR NON AFRICAN AMERICAN 51 ML/MIN (>=60); GLUCOSE, SERUM 92 MG/DL (60-99); SODIUM, SERUM 136 MMOL/L (135-148)
[2017-01-07 07:51] LABS: BUN (BLOOD UREA NITROGEN) 41 MG/DL (6-23)
[2017-01-07 07:52] LABS: POTASSIUM, SERUM 5.6 MMOL/L (3.5-5.3)
[2017-01-08 05:24] LABS: ALBUMIN 2.8 G/DL (3.5-5.0); BUN (BLOOD UREA NITROGEN) 36 MG/DL (6-23); CALCIUM, SERUM 9.5 MG/DL (8.5-10.4); CHLORIDE, SERUM 102 MMOL/L (96-112); CO2 (CARBON DIOXIDE) 26 MMOL/L (24-34); CREATININE 1.12 MG/DL (0.70-1.30); GFR AFRICAN AMERICAN 72 ML/MIN (>=60); GFR NON AFRICAN AMERICAN 62 ML/MIN (>=60); GLUCOSE, SERUM 97 MG/DL (60-99); POTASSIUM, SERUM 4.9 MMOL/L (3.5-5.3); SODIUM, SERUM 137 MMOL/L (135-148)
[2017-01-08 05:38] LABS: PROTIME (NOT ORD) 45.7 SEC (12.0-14.5)
[2017-01-09 03:34] LABS: BASOPHILS 0.2 %; BASOPHILS ABSOLUTE 0.03 10/3/uL (0.0-0.16); EOSINOPHILS 0.8 %; EOSINOPHILS ABSOLUTE 0.11 10/3/uL (0.0-0.53); HEMATOCRIT 44.1 % (40.0-51.0); HEMOGLOBIN 13.6 g/dL (13.6-17.8); IMMATURE GRANULOCYTES 0.6 %; IMMATURE GRANULOCYTES ABSOLUTE 0.08 10/3/uL (0.0-0.11); LYMPHOCYTES 7.5 %; MEAN CORPUS HGB CONC 30.8 g/dL (32.0-36.0); MEAN CORPUSCULAR HEMOGLOB 22.3 pg (26.0-34.0); MEAN CORPUSCULAR VOLUME 72.4 fL (80-100); MONOCYTES 7.9 %; MONOCYTES ABSOLUTE 1.06 10/3/uL (0.21-1.20); NEUTROPHILS ABSOLUTE 11.09 10/3/uL (2.02-8.40); PLATELET COUNT 390 10/3/uL (150-400); RBC DISTRIBUTION WIDTH 18.7 % (12.0-16.0); RED CELL COUNT 6.09 10/6/uL (4.7-6.1)
[2017-01-09 03:42] LABS: MANUAL DIFF NO %; WHITE BLOOD CELLS 13.4 10/3/uL (4.5-10.5)
[2017-01-09 03:44] LABS: ALBUMIN 2.9 G/DL (3.5-5.0); CALCIUM, SERUM 9.3 MG/DL (8.5-10.4); CHLORIDE, SERUM 99 MMOL/L (96-112); CO2 (CARBON DIOXIDE) 27 MMOL/L (24-34); CPK 27 U/L (0-200); CREATININE 1.09 MG/DL (0.70-1.30); GFR AFRICAN AMERICAN 74 ML/MIN (>=60); GFR NON AFRICAN AMERICAN 64 ML/MIN (>=60); GLUCOSE, SERUM 109 MG/DL (60-99); PHOSPHORUS, SERUM 3.6 MG/DL (2.5-4.5); POTASSIUM, SERUM 4.9 MMOL/L (3.5-5.3); SODIUM, SERUM 136 MMOL/L (135-148); TROPONIN I 0.04 NG/ML (<0.05)
[2017-01-09 03:47] LABS: BUN (BLOOD UREA NITROGEN) 30 MG/DL (6-23); CK-MB 0.5 NG/ML
[2017-01-09 03:58] LABS: ANISOCYTOSIS 1+ (5-10/OIF) (0-5/OIF); GIANT PLATELET OCC; PLATELET ESTIMATE ADQ (ADEQUATE)
[2017-01-09] MEDS ORDERED: COREG6 PO (10:57)
[2017-01-09] MEDS ORDERED: XARELTO15 MG PO (11:00)
== END 2017-01-09 13:44 | disposition home health service (06) | DRG 176 ==
LOC: ER 18:32 → CCU 23:15 → 6NO 01-01 11:27
PROVIDERS: Emergency Medicine; Hospitalist; Internal Medicine; Internal Medicine Cardiovascular Disease; Internal Medicine Critical Care Medicine
PROC: B24BZZ4 Ultrasonography of Heart with Aorta, Transesophageal (ICD-10-PCS; principal; 2017-01-08)
PROC: 5A2204Z Restoration of Cardiac Rhythm, Single (ICD-10-PCS; 2017-01-08)
DX: I26.99 Other pulmonary embolism without acute cor pulmonale (principal); I50.22 Chronic systolic (congestive) heart failure; I48.4 Atypical atrial flutter; I10 Essential (primary) hypertension; I71.4 Abdominal aortic aneurysm, without rupture; I16.0 Hypertensive urgency; I25.10 Atherosclerotic heart disease of native coronary artery without angina pectoris; I35.1 Nonrheumatic aortic (valve) insufficiency; E04.9 Nontoxic goiter, unspecified; E03.9 Hypothyroidism, unspecified; Z82.49 Family history of ischemic heart disease and other diseases of the circulatory system; Z80.1 Family history of malignant neoplasm of trachea, bronchus and lung; Z87.891 Personal history of nicotine dependence; Z91.040 Latex allergy status
CPT/HCPCS: 36600; 71010; 71275; 80048; 80053; 80069; 82550; 82553; 82805; 82962; 83735; 83880; 84100; 84484; 85025; 85610; 85730; 87641; 92960; 93005; 93306; 93312; 93320; 93325; 94640; 96365; 96366; 96375; 97116-GP; 97161-GP; 99291; A9270-GY; J0360; Q9967

== ENCOUNTER 2017-04-14 10:17 | Emergency (ER) | payer OTHER ==
[~2017-04-14 10:17] MED LIST changes: +ALPHAGAN P0.1 % OPH; +COREG6 PO; +FISH-EPA1000 MG PO; +PRIN5 PO; +VITAMIN D31000 UNIT PO; +XARELTO15 MG PO; +Z100 PO
[2017-04-14 11:31] LABS: BASOPHILS 0.1 %; BASOPHILS ABSOLUTE 0.01 10/3/uL (0.0-0.16); EOSINOPHILS 2.2 %; EOSINOPHILS ABSOLUTE 0.15 10/3/uL (0.0-0.53); ER CBC TAT 0 Hrs 11 Mins; HEMATOCRIT 49.8 % (40.0-51.0); HEMOGLOBIN 15.5 g/dL (13.6-17.8); IMMATURE GRANULOCYTES 0.4 %; IMMATURE GRANULOCYTES ABSOLUTE 0.03 10/3/uL (0.0-0.11); LYMPHOCYTES ABSOLUTE 1.09 10/3/uL (0.67-4.30); MANUAL DIFF NO %; MEAN CORPUS HGB CONC 31.1 g/dL (32.0-36.0); MEAN CORPUSCULAR HEMOGLOB 22.2 pg (26.0-34.0); MEAN CORPUSCULAR VOLUME 71.4 fL (80-100); MONOCYTES 4.1 %; MONOCYTES ABSOLUTE 0.28 10/3/uL (0.21-1.20); NEUTROPHILS 77.2 %; NEUTROPHILS ABSOLUTE 5.27 10/3/uL (2.02-8.40); PLATELET COUNT 393 10/3/uL (150-400); RBC DISTRIBUTION WIDTH 18.4 % (12.0-16.0); RED CELL COUNT 6.97 10/6/uL (4.7-6.1); WHITE BLOOD CELLS 6.8 10/3/uL (4.5-10.5)
[2017-04-14 11:35] LABS: INTERNATIONAL NORMAL RATI 2.8 UNITS (-)
[2017-04-14 11:36] LABS: PARTIAL THROMBO TIME 60.8 SEC (22.5-37.2); PROTIME (NOT ORD) 28.9 SEC (12.0-14.5)
[2017-04-14 11:40] LABS: A/G RATIO 0.8 (0.7-1.9); ALKALINE PHOSPHATASE 89 U/L (45-117); BUN (BLOOD UREA NITROGEN) 11 MG/DL (6-23); CALCIUM, SERUM 8.9 MG/DL (8.5-10.4); CHLORIDE, SERUM 107 MMOL/L (96-112); CO2 (CARBON DIOXIDE) 30 MMOL/L (24-34); GFR AFRICAN AMERICAN 98 ML/MIN (>=60); GFR NON AFRICAN AMERICAN 85 ML/MIN (>=60); GLOBULIN 3.8 G/DL (2.5-4.1); GLUCOSE, SERUM 97 MG/DL (60-99); POTASSIUM, SERUM 3.8 MMOL/L (3.5-5.3); SGOT(AST) 15 U/L (5-40); SGPT(ALT) 19 U/L (5-65); SODIUM, SERUM 142 MMOL/L (135-148); TOTAL BILIRUBIN 1.1 MG/DL (0-1.2); TOTAL PROTEIN 6.8 G/DL (6.0-8.5); TROPONIN I 0.03 NG/ML (<0.05)
[2017-04-14 11:55] LABS: ANISOCYTOSIS 1+ (5-10/OIF) (0-5/OIF); PLATELET ESTIMATE DEC (ADEQUATE)
[2017-04-14 11:56] LABS: GIANT PLATELET OCC
== END 2017-04-14 14:20 | disposition home or self-care (01) ==
LOC: ER 10:17
PROVIDERS: Emergency Medicine
DX: I50.9 Heart failure, unspecified (principal); I42.9 Cardiomyopathy, unspecified; I48.91 Unspecified atrial fibrillation; I25.2 Old myocardial infarction; Z91.040 Latex allergy status; Z79.899 Other long term (current) drug therapy
CPT/HCPCS: 71010; 80053; 83880; 84484; 85025; 85610; 85730; 93005; 94640; 99285; A9270-GY